=== PATIENT | male | born 1995 | race Hispanic/Latino ===

== ENCOUNTER 2017-06-25 12:33 | Emergency (ER) | payer SELFPAY | END 2017-06-25 13:21 | disposition home or self-care (01) | LOC: EDH 12:33 | DX: R11.2 Nausea with vomiting, unspecified (principal); R19.7 Diarrhea, unspecified ==

== ENCOUNTER 2022-02-15 04:11 | Emergency (ER) | payer OTHER ==
[~2022-02-15] VITALS: Ht 170.2 cm; Wt 99.8 kg
[~2022-02-15 04:11] MED LIST: DICY20TA2 PO; FAMO20TA8 PO
[2022-02-15 04:26] VITALS: BP 156/92
[2022-02-15] MEDS: SIMETHICONE 40 MG/0.6 ML ML PO SCH (04:30)
[2022-02-15] MEDS: DICYCLOMINE HCL 10 MG/5 ML ML PO ONE ×2 (04:31)
[2022-02-15] MEDS: LIDOCAINE HCL 2% VISCOUS 15 ML UDCUP PO ONE (04:31)
[2022-02-15] MEDS: MAG/ALUM/SIMETH 30 ML UDCUP PO ONE (04:31)
[2022-02-15] MEDS: LIDOCAINE HCL 2% VISCOUS 15 ML UDCUP ONE (04:32)
[2022-02-15] MEDS: MAG/ALUM/SIMETH 30 ML UDCUP ONE (04:32)
[2022-02-15] MEDS: SIMVASTATIN 20 MG TABLET ONE (04:33)
[2022-02-15] MEDS ORDERED: MAG-55 PO (05:02)
[2022-02-15] MEDS: ONDANSETRON ODT 4MG TAB SL ONE (05:02)
[2022-02-15] MEDS ORDERED: ESOM20CA31 PO (05:02)
[2022-02-15] MEDS ORDERED: FAMO-136 PO (17:34)
== END 2022-02-15 05:24 | disposition home or self-care (01) ==
LOC: EDH 04:11
DX: K29.70 Gastritis, unspecified, without bleeding (principal); K21.9 Gastro-esophageal reflux disease without esophagitis; K30 Functional dyspepsia; I10 Essential (primary) hypertension; E11.9 Type 2 diabetes mellitus without complications

== ENCOUNTER 2022-02-15 14:37 | Emergency (ER) | payer OTHER ==
[~2022-02-15] VITALS: Ht 170.2 cm; Wt 99.8 kg
[~2022-02-15 14:37] MED LIST changes: +ESOM20CA31 PO; +MAG-55 PO
[2022-02-15 15:30] LABS: BASOPHILS % (AUTO) 0.5 % (0.0-5.0); EOSINOPHILS % (AUTO) 0.4 % (0.0-8.0); HEMATOCRIT 48.7 % (42-54); LYMPHOCYTES % (AUTO) 38.1 % (21.0-51.0); MEAN CORPUSCULAR HEMOGLOBIN 30.1 pg (27.0-33.0); MEAN CORPUSCULAR HGB CONC 35.5 g/dL (32.0-36.0); MEAN CORPUSCULAR VOLUME 84.7 fL (79-99); MONOCYTES % (AUTO) 9.1 % (3.0-13.0); NEUTROPHILS % (AUTO) 51.5 % (40.0-77.0); PLATELET COUNT (AUTO) 242 K/uL (130-400); RED BLOOD CELL COUNT(AUTO) 5.75 MIL/uL (4.50-6.20); RED CELL DISTRIBUTION WIDTH 12.3 % (11.0-15.5); WHITE BLOOD COUNT (AUTO) 7.4 K/uL (4.8-10.8)
[2022-02-15] MEDS ORDERED: ONDANSETRON 4MG INJ IVP ONE (15:30)
[2022-02-15] MEDS ORDERED: 0.9% NACL 500ML IV.SOLN 500 ML IV ONE (15:30)
[2022-02-15] MEDS ORDERED: FAMOTIDINE 20MG VIAL IV ONE (15:30)
[2022-02-15] MEDS ORDERED: MORPHINE 2 MG SYG IVP ONE (15:30)
[2022-02-15] MEDS ORDERED: KETOROLAC 15MG/ML VIAL (15MG/ML) IV ONE (15:30)
[2022-02-15 15:33] LABS: POTASSIUM 3.9 mmol/L (3.5-5.1)
[2022-02-15 15:38] LABS: ALBUMIN 4.4 g/dL (3.5-5.0)
[2022-02-15 15:46] LABS: APPEARANCE,URINE CLEAR (CLEAR); BILIRUBIN,URINE NEGATIVE (NEGATIVE); COLOR,URINE LIGHT-YELLOW (YELLOW); GLUCOSE, URINE (UA) >=1000 mg/dL (NEGATIVE); KETONES,URINE 60 mg/dL (NEGATIVE); LEUKOCYTE ESTERASE ,URINE NEGATIVE Leu/uL (NEGATIVE); NITRATE,URINE NEGATIVE (NEGATIVE); OCCULT BLOOD,URINE NEGATIVE (NEGATIVE); PH,URINE 8.5 (5.0-8.0); PROTEIN,URINE 30 mg/dL (NEGATIVE); UROBILINOGEN,URINE 0.2 mg/dL (0.2-1.0)
[2022-02-15 15:51] LABS: RBC,URINE 0-1 /HPF (0-1); SQUAMOUS EPITHELIAL CELL,UR RARE /HPF (0-2); WBC,URINE 0-1 /HPF (0-1)
[2022-02-15] MEDS ORDERED: LIDOCAINE HCL 2% VISCOUS 15 ML UDCUP PO ONE (16:30)
[2022-02-15] MEDS ORDERED: MAG/ALUM/SIMETH 30 ML UDCUP PO ONE (16:30)
[2022-02-15] MEDS ORDERED: FAMO-136 PO (17:34)
[2022-02-15 17:49] VITALS: BP 136/72
== END 2022-02-15 17:50 | disposition home or self-care (01) ==
LOC: EDH 14:37
DX: K29.70 Gastritis, unspecified, without bleeding (principal); E11.9 Type 2 diabetes mellitus without complications; I10 Essential (primary) hypertension
CPT/HCPCS: 99284; 96374; 96375; 76705; 96361; 80053; 83690; 85025; 81001; 36415; J7040; J3490; J2405; J1885

== ENCOUNTER 2022-04-05 01:28 | Emergency (ER) | payer OTHER ==
[~2022-04-05] VITALS: Ht 170.2 cm; Wt 99.8 kg
[~2022-04-05 01:28] MED LIST changes: +FAMO-136 PO
[2022-04-05] MEDS ORDERED: MAG/ALUM/SIMETH 30 ML UDCUP PO ONE (02:00)
[2022-04-05] MEDS ORDERED: LIDOCAINE HCL 2% VISCOUS 15 ML UDCUP PO ONE (02:00)
[2022-04-05] MEDS ORDERED: HYDR-3830 PO (02:45)
[2022-04-05] MEDS ORDERED: OMEP40CA21 PO (02:45)
[2022-04-05 02:48] VITALS: BP 161/102
== END 2022-04-05 02:57 | disposition home or self-care (01) ==
LOC: EDH 01:28
DX: F41.9 Anxiety disorder, unspecified (principal); K29.70 Gastritis, unspecified, without bleeding; I10 Essential (primary) hypertension; E11.9 Type 2 diabetes mellitus without complications; Z98.890 Other specified postprocedural states; Z79.899 Other long term (current) drug therapy